=== PATIENT | female | born 1960 | race Caucasian/White ===

== ENCOUNTER → 2019-07-29 | Outpatient (CLI) | payer OTHER | END | disposition home or self-care (01) | LOC: RAH 15:00 | PROVIDERS: ATTEND Internal Medicine Cardiovascular Disease | DX: Z13.6 Encounter for screening for cardiovascular disorders (principal) | CPT/HCPCS: 75571 ==

== ENCOUNTER 2022-01-12 06:03 | Day surgery (SDC) | payer BC ==
[2022-01-09 10:54] VITALS: BP 124/54
[2022-01-09 11:08] LABS: CREATININE 0.8 mg/dL (0.5-1.5)
[2022-01-09 11:15] LABS: BASOPHILS % (AUTO) 1.4 % (0.0-5.0); EOSINOPHILS % (AUTO) 2.2 % (0.0-8.0); HEMATOCRIT 41.5 % (36-48); LYMPHOCYTES % (AUTO) 21.2 % (21.0-51.0); MEAN CORPUSCULAR HEMOGLOBIN 30.1 pg (27.0-33.0); MEAN CORPUSCULAR VOLUME 93.9 fL (79-99); NEUTROPHILS % (AUTO) 61.8 % (40.0-77.0); PLATELET COUNT (AUTO) 226 K/uL (130-400); RED BLOOD CELL COUNT(AUTO) 4.42 MIL/uL (4.00-5.50); RED CELL DISTRIBUTION WIDTH 13.2 % (11.0-15.5)
[2022-01-12] VITALS (11 sets, daily range): BP systolic 110–135; BP diastolic 50–63
[~2022-01-12] VITALS: Ht 162.6 cm; Wt 47.8 kg
[~2022-01-12 06:03] MED LIST: ACEB200C17 PO; ALPR2TAB2 PO; BUPR-317 PO; DILT90SR PO; ESTR0.5T PO; LEVO150C4 PO; NILO150C PO; PANT40TA54 PO
[2022-01-12] MEDS ORDERED: CEFAZOLIN SODIUM 1 GM VIAL ONE (06:39)
[2022-01-12] MEDS ORDERED: LACTATED RINGERS 1000ML 1,000 ML IV ONE (06:39)
[2022-01-12] MEDS ORDERED: LIDOCAINE 1%-EPI 1:100,000 20 ML VIAL IJ ONE (06:57)
[2022-01-12] MEDS ORDERED: BUPIVACAINE/PF 0.25% 30ML VIAL IJ ONE (06:57)
[2022-01-12] MEDS ORDERED: SODIUM BICARB [NEONATAL] 4.2% 10ML SYG ONE (06:57)
[2022-01-12] MEDS ORDERED: MIDAZOLAM HCL 1 MG/ML 2ML VIAL ONE (07:03)
[2022-01-12] MEDS ORDERED: FENTANYL CITRATE PF 50 MCG/1 ML 2ML VIAL ONE (07:04)
[2022-01-12] MEDS ORDERED: IOPAMIDOL 10 ML VIAL ONE (07:43)
[2022-01-12] MEDS ORDERED: CEFAZOLIN SODIUM 1 GM VIAL IVP ONE (08:00)
[2022-01-12] MEDS ORDERED: ONDANSETRON 4MG INJ ONE (08:13)
== END 2022-01-12 09:05 | disposition home or self-care (01) ==
LOC: DAH 06:03
PROVIDERS: ATTEND Neurological Surgery
DX: M53.3 Sacrococcygeal disorders, not elsewhere classified (principal); I10 Essential (primary) hypertension; Z88.8 Allergy status to other drugs, medicaments and biological substances; Z88.6 Allergy status to analgesic agent; Z98.1 Arthrodesis status; Z79.899 Other long term (current) drug therapy; Z79.890 Hormone replacement therapy
CPT/HCPCS: 27096; 36415; 72202; 80048; 85025; 87635; A4215 ×2; A4221; A4222; A4223; A4663; A6260; C9803; J0690; J1030; J2250; J2405; J3010; J3490 ×3; J7120; Q9966

== ENCOUNTER → 2024-11-07 | Outpatient (CLI) | payer OTHER ==
[~2024-11-07] MED LIST changes: -ACEB200C17 PO; -BUPR-317 PO; +BUPR-561 PO; -ESTR0.5T PO; +ESTR0.5T2 PO; +[UNRECOGNIZED DRUG - CODE] PO
== END | disposition home or self-care (01) ==
LOC: SHCH 12:56
PROVIDERS: ATTEND Internal Medicine Cardiovascular Disease
DX: R01.1 Cardiac murmur, unspecified (principal)
CPT/HCPCS: 93306